=== PATIENT | male | born 1970 | race African-American/Black ===

== ENCOUNTER 2022-03-07 15:37 | Emergency (ER) | payer SELFPAY ==
[2022-03-07] MEDS ORDERED: Aspirin 81 MG Tab.Chew PO ONE (15:54)
[2022-03-07] MEDS ORDERED: Nitroglycerin 2% Oint 1 GM UD Packet TOP ONE (16:09)
[2022-03-07 16:37] LABS: CARBON DIOXIDE,CO2 28.4 mmol/L (21.0-32.0); POTASSIUM,K 3.8 mmol/L (3.5-5.1)
[2022-03-07 16:51] LABS: ESTIMATED GFR 46.2 ml/min
== END 2022-03-07 18:54 | disposition left against medical advice (07) ==
LOC: MW.ED 15:37
DX: R07.9 Chest pain, unspecified (principal); Z20.822 Contact with and (suspected) exposure to COVID-19
CPT/HCPCS: 36415; 71045; 80053; 84484; 85025; 87635; 93005; 99285; A9270; 93010; U0002